=== PATIENT | female | born 1940 | race Caucasian/White ===

== ENCOUNTER → 2016-11-12 | Outpatient (CLI) | payer MEDICARE, BC ==
[~2016-11-12] MED LIST: ASPI-621 PO; ASPI325T4 PO; ATEN50TA41 PO; ATOR10TA PO; OLME20TA PO; OMEP40CA6 PO; OXYC5CAP4 PO
[2016-11-12 10:32] LABS: ASPARTATE AMINO TRANSFERASE 16 U/L (15-37); BLOOD UREA NITROGEN 14 mg/dL (7-18)
== END | disposition home or self-care (01) ==
LOC: STAR 09:16
PROVIDERS: ATTEND Internal Medicine
DX: Z01.818 Encounter for other preprocedural examination (principal); R94.31 Abnormal electrocardiogram [ECG] [EKG]; I10 Essential (primary) hypertension; E78.5 Hyperlipidemia, unspecified; Z86.010 Personal history of colon polyps
CPT/HCPCS: 36415; 80053; 93005

== ENCOUNTER 2016-11-24 07:35 | Day surgery (SDC) | payer MEDICARE, BC ==
[~2016-11-24] VITALS: Ht 177.8 cm; Wt 117.0 kg
[2016-11-24 08:13] VITALS: BP 175/86
[2016-11-24] MEDS ORDERED: ROCURONIUM 10 MG/ML ONE (08:24)
[2016-11-24] MEDS ORDERED: SUCCINYLCHOLINE 20 MG/ML, 10ML ONE (08:24)
[2016-11-24] MEDS ORDERED: PROPOFOL 10 MG/ML, 20ML ONE (08:24)
[2016-11-24] MEDS ORDERED: GLYCOPYRROLATE 0.2MG/1ML ONE (08:24)
[2016-11-24] MEDS ORDERED: NEOSTIGMINE 1 MG/ML, 10ML ONE (08:24)
[2016-11-24] MEDS ORDERED: ONDANSETRON 2MG/ML, 2ML ONE (08:24)
[2016-11-24] MEDS ORDERED: FENTANYL PF 100 MCG/2ML ONE (08:28)
[2016-11-24] MEDS ORDERED: ONDANSETRON 2MG/ML, 2ML IVPush PRN (08:30)
[2016-11-24] MEDS ORDERED: HYDROcodone/APAP 7.5-325MG/15ML UDC PO PRN (08:30)
[2016-11-24] MEDS ORDERED: LABETALOL 5MG/ML, 20ML IV PRN (08:30)
[2016-11-24] MEDS ORDERED: FENTANYL PF 100 MCG/2ML IV PRN (08:30)
[2016-11-24] MEDS ORDERED: METOPROLOL 1 MG/ML, 5ML IV PRN (08:30)
[2016-11-24] MEDS ORDERED: EPHEDRINE 50 MG/ML, 1ML IVPush PRN (08:30)
[2016-11-24] MEDS ORDERED: ALBUTEROL SULFATE 2.5 MG/3 ML NPPB PRN (08:30)
[2016-11-24] MEDS ORDERED: hydrALAzine 20 MG/ML, 1ML IV PRN (08:30)
[2016-11-24] MEDS ORDERED: ACETAMINOPHEN 325 MG TABLET PO PRN (08:30)
== END 2016-11-24 11:20 ==
LOC: OUT 07:35
PROVIDERS: ATTEND Internal Medicine
DX: Z09 Encounter for follow-up examination after completed treatment for conditions other than malignant neoplasm (principal); K63.5 Polyp of colon; K63.89 Other specified diseases of intestine; J45.909 Unspecified asthma, uncomplicated; I27.2 Other secondary pulmonary hypertension; G47.33 Obstructive sleep apnea (adult) (pediatric); Z90.710 Acquired absence of both cervix and uterus; Z86.711 Personal history of pulmonary embolism
CPT/HCPCS: 45380; 74000; 76000; 88305; J0330; J2405; J2704; J2710; J3010; J3490